=== PATIENT | male | born 1945 | race Caucasian/White ===

== ENCOUNTER 2025-01-30 10:02 | Outpatient (CLI) | payer MEDICARE, OTHER, SELFPAY ==
--- NOTE | 2025-01-30 10:15 | MR_ITS ---
[address] [address] Phone:?[phone] Fax:?[phone] Referring Physician Information: Mehrdad Saenz M.D. [address] [place] [id number] Phone:?[phone] Fax:?[phone] Patient:Efra Eller D.O.B:?1945 Sex:?Male Phone:?[phone] [facility] MRN:?[id number] Exam Date:?01/30/2025 EXAM: MRI OF THE RIGHT SHOULDER CLINICAL INFORMATION: The patient is an 79-year-old with right shoulder pain. Evaluate for rotator cuff tear. PRIOR SURGERY: None reported. COMPARISON STUDIES: Comparison is made to prior radiographs dated 04/24/2024. TECHNICAL INFORMATION: Imaging was performed on a high-field, 1.5 Tania MR scanner. Axial, coronal, and sagittal proton-density and T2 imaging of the right shoulder was performed in addition to coronal STIR imaging. FINDINGS: Articular/Extraarticular collections: Effusion: Moderate. Subacromial/subdeltoid: Moderate fluid is seen within the subacromial/subdeltoid bursa, in keeping with changes of bursitis. Subcoracoid: No evidence for bursitis. Osseous structures: Proximal humerus: Cortical irregularity, subcortical cystic change, and subcortical edema can be seen involving the greater tuberosity region, in keeping with the rotator cuff pathology discussed below. There is no evidence for greater or lesser tuberosity fracture. No Hill-Sachs or reverse Hill-Sachs lesion is identified. Glenoid: No acute bony abnormality of the glenoid fossa or glenoid neck can be seen. Acromioclavicular joint: Mild to moderate changes of acromioclavicular joint arthrosis are present and can be seen on sagittal series 9 image 14. Coracoacromial arch: Acromion morphology: Type II. No evidence for os acromiale. Acromiohumeral space: Mildly narrowed. Coracohumeral space: Within normal limits. Rotator cuff and deltoid: Supraspinatus: Moderate changes of supraspinatus tendinosis can be seen. There is a superimposed focus of full-thickness tearing involving the anterior and distal tendon fibers, seen on coronal series 5 image 10 and on sagittal series 9 image 8. The area of full-thickness tearing measures 13 mm in mediolateral dimension and 13 mm in anteroposterior dimension. No atrophic changes of the supraspinatus muscle belly are present. Infraspinatus: Moderate infraspinatus tendinosis can be seen. There is full- thickness or near full-thickness tearing of the distal tendon fibers, seen to best advantage on coronal series 5 image 17 and on sagittal series 9 image 4. This area of full-thickness or near full-thickness tearing measures 9 mm in mediolateral dimension and 8 mm in anteroposterior dimension. No atrophic changes of the supraspinatus muscle belly are identified. Teres minor: No evidence for tendinosis, tearing, or associated muscle belly atrophy. Subscapularis: Moderate subscapularis tendinosis can be seen with partial- thickness intrasubstance and deep surface tearing of the tendon fibers noted on axial series 4 image 17 and involving approximately 50% of the tendon thickness. The area of partial-thickness tearing measures approximately 18 mm in greatest dimension. No definite full-thickness tearing or retraction is seen. No atrophic changes of the subscapularis muscle belly are noted. Deltoid: No evidence for strain or tearing. Biceps tendon: The intra-articular portion of the long head of the biceps tendon is poorly visualized. The biceps tendon is absent from the biceps sulcus. The findings are in keeping with an intra-articular rupture of the long head of the biceps tendon with subsequent retraction. Glenohumeral joint and labrum: Articular Cartilage: No chondral injuries along the articular surfaces of the glenohumeral articulation can be seen. No osteoarthritic changes are identified. Labrum: Degeneration, blunting, and irregularity of the glenoid labrum can be seen without definite areas of well-defined tearing. No paralabral ganglion cyst formation is identified. Capsular Soft Tissues: No definite capsular abnormalities of the glenohumeral joint are seen. No evidence for capsular tearing is present and there are no MR signs of adhesive capsulitis. CONCLUSION: 1. Moderate supraspinatus tendinosis with superimposed full-thickness tearing of the anterior and distal tendon fibers. 2. Moderate infraspinatus tendinosis with full-thickness or near full-thickness tearing of the distal tendon fibers. 3. Moderate subscapularis tendinosis with partial-thickness intrasubstance and deep surface tearing. 4. Mild to moderate acromioclavicular joint arthrosis with mild narrowing of the acromiohumeral space. 5. Glenohumeral joint effusion and subacromial/subdeltoid bursitis. 6. Intra-articular biceps rupture with subsequent retraction. [facility] Electronically signed on 01/30/2025 11:24:00 AM by Mohinder Mehta M.D.
== END 2025-01-30 10:03 | disposition home or self-care (01) ==
PROVIDERS: Visit Provider Orthopaedic Surgery
DX: M25.511 Pain in right shoulder (principal); M75.101 Unspecified rotator cuff tear or rupture of right shoulder, not specified as traumatic; S46.811A Strain of other muscles, fascia and tendons at shoulder and upper arm level, right arm, initial encounter; M19.011 Primary osteoarthritis, right shoulder; M25.411 Effusion, right shoulder; M75.51 Bursitis of right shoulder
CPT/HCPCS: 73221

== ENCOUNTER 2025-05-09 06:58 | Day surgery (SDC) | payer MEDICARE, OTHER, SELFPAY ==
[2025-05-09] VITALS (16 sets, daily range): BP systolic 109–175; BP diastolic 54–112; PULSE 45–71; RESP 12–16; TEMP 36.3–36.8; O2SAT 91–99; BMI 26.4
--- NOTE | 2025-05-09 07:25 | W.PM.H&PU ---
History & Physical Update History & Physical Update H&P Reviewed and patient assessed: No changes noted
[2025-05-09] MEDS: SODIUM CHLORIDE 0.9 % (FLUSH) 10 ML SYRINGE IVF (07:35)
[2025-05-09] MEDS: LACTATED RINGERS 1000 ML 1,000 ML 100 ML IV (07:35)
--- NOTE | 2025-05-09 07:53 | PM.ORPRC ---
Procedure Note Date of procedure: 05/09/25 Procedure: PREOPERATIVE DIAGNOSES: 1. Right shoulder rotator cuff tear. 2. Right shoulder acromioclavicular joint osteoarthritis. 3. 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 Right shoulder rotator cuff tear - upper subscapularis and supraspinatus 2. Right shoulder acromioclavicular joint osteoarthritis. 3. 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 4. Right shoulder NAME OF OPERATION: 1. Right shoulder arthroscopic rotator cuff repair (upper subscapularis and supraspinatus) 2. Right shoulder arthroscopic limited debridement (long head of biceps tendon, superior labrum, and subacromial bursa). 3. Right shoulder arthroscopic distal clavicle excision. 4. Right shoulder arthroscopic bursectomy and subacromial decompression. SURGEON: Winston Noguera MD CHIEF TECHNOLOGY OFFICER: Ramón Duval. An title i instructional assistant was critical for this case to aid in patient positioning, suture manipulation, arm positioning, instrument positioning, and wound closure. ANESTHESIA: General plus preoperative supraclavicular block. IMPLANTS: Arthrex 2.6 mm FiberTak anchor x1; 4.75 mm knotless BioComposite SwiveLock anchors x2; 5.5 mm knotless BioComposite SwiveLock anchor x2 COMPLICATIONS: None ESTIMATED BLOOD LOSS: 10 mL INDICATIONS: The patient is a pleasant, 80-year-old male who has experienced right shoulder pain that has been increasing in recent time. Physical exam and imaging were consistent with a rotator cuff tear and acromioclavicular joint osteoarthritis. Given these findings, as well as the weakness and pain, and failure to improve with nonoperative management, recommendation was made for surgery consisting of right shoulder arthroscopic rotator cuff repair, limited debridement, subacromial decompression, and distal clavicle excision. Prior to surgery, risks and benefits of procedure were discussed with patient, all questions were answered, and informed consent was obtained. FINDINGS: Exam under anesthesia revealed stable shoulder with full range of motion. The diagnostic arthroscopy revealed grade 3 chondromalacia of the humeral head with degenerative tearing of the superior labrum and chronic rupture of the long head of the biceps tendon. No loose bodies within the glenohumeral joint or subscapularis recess. Tendinosis and partial articular sided tearing of the subscapularis. Full-thickness tear of the supraspinatus which measured approximately 2 cm in anterior-posterior direction and was retracted 1 cm medially. Moderate degenerative changes of the acromioclavicular joint. PROCEDURE: Following a thorough discussion of risks, benefits, and alternatives, consent was obtained and the operative shoulder was marked. A supraclavicular nerve block was performed by anesthesia staff in preop holding. The patient was brought to the operating room and placed supine on the operating table. Induction of anesthesia was completed, and patient was given IV Ancef preoperatively for prophylaxis. He was then rotated the beach chair position. Head was placed in padded head of sales and marketing in neutral alignment, and all bony prominences were well padded. The operative shoulder and upper extremity were prepped and draped in the appropriate sterile fashion using ChloraPrep. A surgical time-out was performed confirming patient identity, surgical site, surgical procedure. The glenohumeral joint was injected with 40 mL of normal saline using and 18g spinal needle from a posterior approach. Posterior portal was established. Anterior portal was established after localization with a spinal needle and a 7.0 mm cannula was placed here. Diagnostic arthroscopy was then performed with findings as noted above. The remnant stump of the long head of the biceps tendon was debrided with the motorized shaver. Degenerative tearing of the superior labrum was debrided with the motorized shaver. After debridement, remnant labrum was intact. The undersurface of the rotator cuff was also debrided with the shaver as was the footprint of the supraspinatus. Attention was then directed the subscapularis repair. There was tendinosis and partial articular sided tearing of the subscapularis. Anterior superior lateral portal was established, and a 7.0 mm cannulas placed here. The footprint of the upper side subscapularis was debrided with a motorized shaver and lightly decorticated. A 2.6 mm FiberTak anchor was then placed on the upper margin of the subscapularis footprint. The FiberTape sutures were then passed with a scorpion suture Passer in a mattress fashion securing the tear back to its footprint. The knotless anchor was passed in a simple fashion and tension. Remnant sutures were then cut removed. Fixation subscapularis was noted to be firmly attached back to its footprint. A camera was then placed into the subacromial space. A lateral portal was established after localization of spinal needle. A passport cannulas placed in this portal. A complete subacromial bursectomy and partial acromioplasty was performed with a combination of radiofrequency ablator and arthroscopic shaver. Following this, further inspection of the rotator cuff was performed. The supraspinatus tear was identified as noted above. The margins of the tear were debrided, and the greater tuberosity was debrided with a combination of the bur on reverse setting, and shaver. After gentle decortication, 2 knotless 4.75 mm BioComposite SwiveLock anchors were placed in the anterior medial and posterior medial aspects of the supraspinatus footprint. Passing sutures were then used to shuttle sutures through the supraspinatus tendon lateral to the musculotendinous junction. Medial row repair was then performed using the 2 knotless anchors securing the tendon back to its footprint. Lateral row repair was then completed by placing knotless 5.5 mm BioComposite SwiveLock anchors lateral to the supraspinatus footprint. Each anchor incorporated 1 FiberTape from the previously placed medial row anchors. After tensioning all the sutures, anchors were secured and position and remnant sutures were cut removed. The knotless suture from the posterior anchor was passed through the posterior supraspinatus for additional fixation. This suture was tensioned and remnant sutures were cut and removed. Shoulder then placed through range of motion and rotator cuff was reprobed and confirmed to be stable. Attention was then directed to the distal clavicle excision. A 70 the scope was placed through the lateral portal to visualize a acromioclavicular joint. Acromioclavicular joint was debrided of soft tissue using the radiofrequency ablator and motorized shaver. Distal clavicle excision was then performed with a 5.0 mm laura creating approximately 1 cm space between the distal clavicle and acromion. Surgical instruments and cannulas then removed. Excess fluid was drained from the joint. Portal sites were then closed with 3-0 nylon simple interrupted sutures followed by the application of sterile dressing. Arm was then placed into an abduction sling. Patient was rotated supine position, woken from anesthesia, transferred to the PACU in stable condition. PLAN: 1. Discharged to home day of surgery. 2. Ice for pain and swelling. 3. Tylenol and tramadol as needed for pain control. 4. Abduction sling at all times except for ROM and showering. -Rem. ove sling several times daily for pendulum exercises finger, wrist, and elbow range of motion. 5. Follow-up in orthopedic clinic in 10-14 days for wound check and suture removal. 6. Will initiate formal physical therapy 2 weeks postoperatively per the standard rotator cuff repair protocol
--- NOTE | 2025-05-09 07:59 | SUR.PREOP ---
TIME?OUT:?0800 PT/RN/MDA?VERIFICATION?OF?SURGICAL?SITE,?PROCEDURE,?AND?CONSENT OBTAINED?PRIOR?TO?INVASIVE?PROCEDURE.
[2025-05-09] MEDS: MIDAZOLAM HCL 1 MG/ML inj IVP (08:05)
--- NOTE | 2025-05-09 08:30 | P.ANES_ITS ---
Anesthesia Charges Start Date/Time Anesthesia Start Date: 05/09/25 Anesthesia Start Time: 08:42 Stop Date/Time Anesthesia Stop Date: 05/09/25 Anesthesia Stop Time: 11:20 Summary Extremes of Age - Over 70 or under 1: MDA Coding CPT Codes CPT Codes: ANESTH SURGERY OF SHOULDER - 12181 ([id number]) P3 - PATIENT W/SEVERE SYS DISEASE, QK - OUTSIDE LABORER 2-4 CNCRNT ANES PROC, QX - DRYER OPERATOR SVC W/ MD MED DIRECTION Additional Codes: Summary - Extremes of Age - Over 70 or under 1: MDA ([id number])
--- NOTE | 2025-05-09 08:30 | W.PM.NB ---
Nerve Block Nerve Block Time Seen by Provider: 08:00 Date Seen: 05/09/25 Type of block requested by surgeon for post-operative analgesia: supraclavicular Side: right Time out performed: Yes Verification of patient name: Yes Verification of date of : Yes Site marking: site marked Name of person performing procedure: [place] Continuous monitoring Was continuous monitoring of O2 sat, B/P, radioactive waste disposal dispatcher, recorded every 15 minutes?: Yes Procedure Checklist: sterile prep, needles and gloves Ultrasound guided. Images saved: Yes Medications given in 5ml increments after negative aspiration: Ropivicaine %: 0.5 mL: 20 Needle gauge: 22 Precedex (mcg): 25 Patient tolerated procedure well: Yes Block Charges Block Charge (with Pro Fee): Brachial Plexus Use of Ultrasound Machine for Block: Yes- US Guidance/pain block
--- NOTE | 2025-05-09 08:30 | W.ANESCHARGE ---
Anesthesia Charges Start Date/Time Anesthesia Start Date: 05/09/25 Anesthesia Start Time: 08:42 Stop Date/Time Anesthesia Stop Date: 05/09/25 Anesthesia Stop Time: 11:20 Summary Extremes of Age - Over 70 or under 1: MDA Coding CPT Codes CPT Codes: ANESTH SURGERY OF SHOULDER - 05947 ([id number]) P3 - PATIENT W/SEVERE SYS DISEASE, QK - PATIENT CARE TECHNICIAN 2-4 CNCRNT ANES PROC, QX - ELECTRON BEAM PHOTO MASK TECHNICIAN SVC W/ MD MED DIRECTION Additional Codes: Summary - Extremes of Age - Over 70 or under 1: MDA ([id number])
[2025-05-09] MEDS: EPINEPHrine 1 MG in SODIUM CHLORIDE IRRIG SOLUTION 3,000 ML 9003 MG IRRIGATION ×5 (08:55→10:41)
--- NOTE | 2025-05-09 11:23 | P.ANES_ITS ---
Anesthesia Charges Start Date/Time Anesthesia Start Date: 05/09/25 Anesthesia Start Time: 08:42 Stop Date/Time Anesthesia Stop Date: 05/09/25 Anesthesia Stop Time: 11:20 Coding CPT Codes CPT Codes: ANESTH SURGERY OF SHOULDER - 93833 ([id number]) P3 - PATIENT W/SEVERE SYS DISEASE, QK - FLASK PUSHER 2-4 CNCRNT ANES PROC, QX - LAUNDRY HELPER SVC W/ MD MED DIRECTION
--- NOTE | 2025-05-09 11:23 | W.ANESCHARGE ---
Anesthesia Charges Start Date/Time Anesthesia Start Date: 05/09/25 Anesthesia Start Time: 08:42 Stop Date/Time Anesthesia Stop Date: 05/09/25 Anesthesia Stop Time: 11:20 Coding CPT Codes CPT Codes: ANESTH SURGERY OF SHOULDER - 81235 ([id number]) P3 - PATIENT W/SEVERE SYS DISEASE, QK - RING STAMPER 2-4 CNCRNT ANES PROC, QX - PRODUCT APPLICATIONS ENGINEER SVC W/ MD MED DIRECTION
== END 2025-05-09 13:44 | disposition home or self-care (01) ==
LOC: OR 07:00
PROVIDERS: Visit Provider Orthopaedic Surgery
PROC: (CPT 29805; principal; 2025-05-09 08:15)
DX: M75.121 Complete rotator cuff tear or rupture of right shoulder, not specified as traumatic (principal); M19.011 Primary osteoarthritis, right shoulder; S46.111A Strain of muscle, fascia and tendon of long head of biceps, right arm, initial encounter; G89.18 Other acute postprocedural pain
CPT/HCPCS: 29827; 29826; 29824; 29822; 01630; 64415; 76942; 99100; C1713; J0169; J0330; J0690; J1100; J2250; J2371; J2405; J2704; J2795; J3010; J3490; J7120; L3670